=== PATIENT | male | born 1975 ===

== ENCOUNTER 2022-11-27 17:44 | Emergency (ER) | payer OTHER ==
[~2022-11-27] VITALS: Ht 165.1 cm; Wt 68.0 kg
[2022-11-27] MEDS ORDERED: BENZ100A PO (21:26)
== END 2022-11-27 19:49 | disposition home or self-care (01) ==
LOC: ER 17:44
DX: R05.9 Cough, unspecified (principal); Z88.1 Allergy status to other antibiotic agents; Z91.030 Bee allergy status
CPT/HCPCS: 71046